=== PATIENT | male | born 1985 ===

== ENCOUNTER 2018-07-12 16:22 | Emergency (ER) | payer SELFPAY ==
[~2018-07-12] VITALS: Ht 180.3 cm; Wt 72.6 kg
== END 2018-07-12 17:18 | disposition home or self-care (01) ==
LOC: ED 16:22 → EDBD 16:23 → ED 16:23
PROC: 0YQGXZZ Repair Left Knee Region, External Approach (ICD-10-PCS; principal; 2018-07-12)
DX: S81.012A Laceration without foreign body, left knee, initial encounter (principal); Z23 Encounter for immunization; W25.XXXA Contact with sharp glass, initial encounter
CPT/HCPCS: 12034; 90471; 90715; 99282-25